=== PATIENT | female | born 1975 | race Caucasian/White ===

== ENCOUNTER 2016-08-04 18:16 | Emergency (ER) | payer BC ==
--- NOTE | 2016-08-04 19:34 | ERNOTE ---
Date of Service: 08/04/16 Time Seen by Provider: 08/04/16 19:14 Stated Complaint: SOB Presenting Symptoms:: cough Source: patient, family, RN/MD, RN notes reviewed, past records Exam Limitations: no limitations Immunizations: IMMUNIZATION HX Immunizations Up to Date Yes Allergies/Adverse Reactions: Allergies No Known Allergies Allergy (Unverified 08/04/16 18:26) - History of Present Ilness Narrative: Jenniffer is a 40 year old female who was directed to come to the ED for evaluation after being seen in the walk-in clinic earlier today. She has had a cough and chest congestion for over a month. She saw her PCP and was initially treated with doxycycline and a steroid injection. Her symptoms improved for approximately 2 weeks but then again became worse. She again saw her PCP last week and was started on Levaquin and prednisone. Her symptoms have not improved. She had lab work and an EKG earlier today. She had a markedly elevated WBC, but is on prednisone. Her EKG indicated LVH. In light of this, she was directed to come here for further evaluation by chest CT. She had a negative Ddimer and normal troponin. She continues to report intermittent bouts of dyspnea with chest tightness. Frequency/Possible Cause: Reports: unknown cause Modifying Factors - Improves: Denies: coughing, rest, lying down Modifying Factors - Worsens: Denies: activity, coughing, deep breath, rest, lying down Associated Symptoms: Reports: chest pain/soreness, cough, shortness of breath. Denies: wheezing, facial pain, nasal congestion, nasal drainage, dizziness, lightheadedness, earache, headache, sore throat, muscle aches, fever/chills Prior Treatment: Reports: recently seen, treated by physician, currently on antibiotics Review of Systems - Review of Systems Constitutional: Present: See HPI EYE: Present: no symptoms reported ENT: Present: See HPI Respiratory: Present: See HPI Cardiology: Present: chest pain. Absent: palpitations, syncope, edema, claudication Gastrointestinal/Abdominal: Absent: nausea, vomiting, abdominal pain Genitourinary: Present: no symptoms reported Musculoskeletal: Absent: muscle pain, joint pain Skin: Absent: rash, lesions Neurological: Absent: headache, dizziness/light-headedness Endocrine: Present: no symptoms reported Hematologic/Lymphatic: Present: no symptoms reported Psych: Present: anxiety. Absent: depressed - Patient's Past Medical History Patient History - Medical: Anxiety, Depression, Obesity Patient History - Cardiac/Respiratory: No pertinent hx Patient History - Cancer: No Hx of Cancer Patient History - Surgical Procedures: Appendectomy, Cholecystectomy, , T & A Patient History - Other: None LMP (females 10-50): 3 weeks LMP (Calendar): 07/14/16 - Social History Living Situations: spouse Psych History: No pertinent hx Smoking Status: Never smoker Alcohol Use: none Drug Use: none - Immunizations Immunizations Up to Date: Yes Physical Exam - Physical Exam General Appearance: Present: alert, mild distress, anxious, obese Eye Exam: Normal inspection: bilateral Ears, Nose, Throat: Present: normal ENT inspection. Absent: sinus pain/drainage , pharyngeal erythema, pharyngeal swelling Neck: Present: normal inspection, nontender, supple, full range of motion Respiratory: Present: no respiratory distress, chest nontender, lungs clear, accessory muscle use - mild, expiration (prolonged) Cardiovascular/Chest: Present: no murmur, normal peripheral pulses, tachycardia Extremity Exam: Present: normal inspection, non-tender, no edema. Absent: calf tenderness Neurological Exam: Present: alert, oriented, normal mood/affect, no motor/ sensory deficits Skin Exam: Present: normal color, warm/dry ED Progress - Results and Orders Results and Orders: Lab results from today's earlier visit were reviewed. - Vital Signs Patient's Vital Signs:: I have reviewed the patient's vital signs. Vital Signs: Vital Signs 08/04/16 08/04/16 18:20 18:49 Temperature 36.5 C Pulse Rate 115 H 110 H Respiratory 18 15 Rate Blood Pressure 188/116 169/104 O2 Sat by Pulse 96 97 Oximetry - X-Ray X-Ray #1 X-Ray: chest Interpretation: Reviewed by me X-ray Comments: No acute cardiopulmonary process identified - Progress/Reassessment Chief Complaint: Upper Respiratory Symptoms Progress:: Unchanged Plan - Plan Plan: CT scan for PE was initially ordered as the patient was expecting that this be performed due to being directed to come here for it by another provider after her initial evaluation this afternoon. I initially discussed the patient's risk factors for PE with her, and given these factors that a CT scan would be of low yeild. The patient wished to have the scan anyway. After numerous attempts, IV access was not able to be obtained for contrast administration. Based on Wells criteria, the patient is at low risk (1.3%) for PE with her only positive being her elevated heart rate. She has 2 positive criteria based on PERC score (heart rate and estrogen use)- but given her low initial probability for PE and her negative Ddimer, the CT scan was cancelled. I recommended that the patient discuss alternative options for contraception with her PCP, as her age and weight are concerning for the ongoing use of estrogen at this point. Departure - Departure Clinical Impression: Chest pain, non-cardiac Bronchitis, acute Qualifiers: Bronchitis organism: unspecified organism Qualified Code(s): J20.9 - Acute bronchitis, unspecified Disposition: Home Follow Up Needed Condition: Stable Instructions: Acute Bronchitis Additional Instructions: Return if symptoms worsen, follow up with your doctor if they have not improved in 1 week
--- OUTSIDE RECORDS SUMMARY | 2016-08-04 19:35 | XMS REPORT | Continuity of Care Document ---
:1975 Author Organization [facility] ([facility]) Address [address] [place] [address] Phone [phone] Care Team Providers Name Role Phone Provider, No-Primary Care Primary Care Provider Unavailable Source Comments This disclosure is being made pursuant to the Care Everywhere program, applicable federal and state laws, and may not contain all informaitonavailable regarding this patient.[facility] ([facility]) Active Allergies and Adverse Reactions No Active Allergies Current Medications Not on file Active Problems Not on file Social History Tobacco Use Types Packs/Day Years Used Date Never Assessed Last Filed Vital Signs Vital Sign Reading Time Taken Blood Pressure - - Pulse - - Temperature - - Respiratory Rate - - Height - - Weight 106.6 kg (235 lb 0.2 oz) 11/06/1999 8:40 AM CDT Body Mass Index - - Oxygen Saturation - - Plan of Care Health Maintenance Due Date Last Done Comments Hepatitis B Vaccine (1 of 3 - Primary Series) 1975 Tdap Vaccine 10/07/1986 Lipid Disorder Screening 10/07/1993 MMR Vaccine 10/07/1993 Td Vaccine 10/07/1993 Cervical Cancer Screening 10/07/2005 Mammogram 2015 Influenza Vaccine: Seasonal (#1) 12/31/2015 Results from Last 3 Months Not on file
[2016-08-04 21:42] VITALS: BP 175/95
== END 2016-08-04 22:04 | disposition home or self-care (01) ==
LOC: ER 18:16
DX: R07.89 Other chest pain (principal); J20.9 Acute bronchitis, unspecified